=== PATIENT | male | born 1985 | race Two or more races ===

== ENCOUNTER 2016-06-23 14:22 | Emergency (ER) | payer MEDICAID ==
[2016-06-23 17:02] LABS: ABSOLUTE NEUTROPHIL COUNT 8.5 K/mm3 (1.8-7.7); BASO % 0.2 % (0.2-1.0); EOS % 0.1 % (0.9-2.9); HEMATOCRIT 49.3 % (32.0-52.0); IMM NEUT% 0.4 % (0-1); LYMPH # 1.6 (1.0-4.8); LYMPH % 15.1 % (15-45); MEAN CELL VOLUME 85.9 fl (80.0-94.0); MEAN CORPUSCULAR HEMOGLOBIN 29.6 pg (27.0-31.0); MEAN CORPUSCULAR HGB CONC 34.5 g/dl (33.0-37.0); MEAN PLATELET VOLUME 11.3 fl (7.4-10.4); MONO # 0.3 (0.0-0.8); MONO % 3.2 % (4-12); PLATELET COUNT 267 K/mm3 (130-400); RED CELL DISTRIBUTION WIDTH 12.5 % (11.5-14.5)
[2016-06-23 17:14] LABS: ALB/GLOB RATIO 1.5 (>1.0); ALBUMIN 5.1 gm/dL (3.5-5.7)
[2016-06-23] MEDS ORDERED: ONDANSETRON 4 MG/2ML 2 ML VIAL ONE (17:45)
[2016-06-23] MEDS ORDERED: SODIUM CHLORIDE 0.9% 1,000 ML ONE (17:45)
[2016-06-23 18:04] LABS: URINE BILIRUBIN NEGATIVE (NEGATIVE); URINE BLOOD 1+ (NEGATIVE); URINE GLUCOSE (UA) NEGATIVE (NEGATIVE); URINE LEUKOCYTE ESTERASE NEGATIVE (NEGATIVE); URINE NITRITE NEGATIVE (NEGATIVE); URINE PROTEIN TRACE (NEGATIVE); URINE UROBILINOGEN NORMAL (0-1 mg/dl)
[2016-06-23 18:10] LABS: URINE APPEARANCE CLEAR; URINE COLOR YELLOW
[2016-06-23 18:34] LABS: URINE BACTERIA 0; URINE EPITHELIAL CELLS 0 /hpf; URINE RBC 0-2 /hpf; URINE WBC 0-2 /hpf
== END 2016-06-23 19:34 | disposition home or self-care (01) ==
LOC: ED 14:22
DX: R42 Dizziness and giddiness (principal); R11.2 Nausea with vomiting, unspecified
CPT/HCPCS: 85025; 80053; 84484; 81001; 99283 ×2; J7030